=== PATIENT | female | born 1985 | race Caucasian/White ===

== ENCOUNTER 2020-05-21 10:12 | Emergency (ER) | payer OTHER | END 2020-05-21 10:42 | disposition home or self-care (01) | LOC: JVIRT 10:12 | DX: R53.83 Other fatigue (principal); R51.9 Headache, unspecified; Z11.59 Encounter for screening for other viral diseases | CPT/HCPCS: C9803; Q3014-GT; U0003 ==

== ENCOUNTER 2020-06-12 13:38 | Emergency (ER) | payer OTHER | END 2020-06-12 14:46 | disposition home or self-care (01) | LOC: JVIRT 13:38 | DX: Z03.818 Encounter for observation for suspected exposure to other biological agents ruled out (principal); J31.0 Chronic rhinitis | CPT/HCPCS: C9803; G2012-GT; U0003 ==

== ENCOUNTER 2020-07-04 11:23 | Emergency (ER) | payer OTHER | END 2020-07-04 14:03 | disposition home or self-care (01) | LOC: JVIRT 11:23 | DX: Z03.818 Encounter for observation for suspected exposure to other biological agents ruled out (principal) | CPT/HCPCS: C9803; G2012-GT; Q3014-GT; U0003 ==

== ENCOUNTER 2020-07-11 10:36 | Emergency (ER) | payer OTHER | END 2020-07-11 11:57 | disposition home or self-care (01) | LOC: JVIRT 10:36 | DX: J31.0 Chronic rhinitis (principal); Z20.822 Contact with and (suspected) exposure to COVID-19 | CPT/HCPCS: C9803; Q3014-GT; U0003 ==

== ENCOUNTER 2020-07-22 14:02 | Emergency (ER) | payer OTHER | END 2020-07-22 14:26 | disposition home or self-care (01) | LOC: JVIRT 14:02 | DX: Z11.52 Encounter for screening for COVID-19 (principal); R10.9 Unspecified abdominal pain; R51.9 Headache, unspecified | CPT/HCPCS: C9803; G2012-GT; U0003 ==

== ENCOUNTER 2020-07-29 10:42 | Emergency (ER) | payer OTHER | END 2020-07-29 11:19 | disposition home or self-care (01) | LOC: JVIRT 10:42 | DX: U07.1 COVID-19 (principal) | CPT/HCPCS: C9803; G2012-GT; U0003 ==

== ENCOUNTER 2020-08-15 12:10 | Emergency (ER) | payer OTHER | END 2020-08-15 12:56 | disposition home or self-care (01) | LOC: JVIRT 12:10 | DX: R51.9 Headache, unspecified (principal) | CPT/HCPCS: G2012-GT ==

== ENCOUNTER 2023-03-17 13:11 | Day surgery (SDC) | payer OTHER ==
[2023-03-17] MEDS ORDERED: ONDANSETRON 4 MG/2 ML VIAL IVPUSH ONE (13:39)
[2023-03-17] MEDS ORDERED: SODIUM CHLORIDE 0.9% 500 ML INFUS.BAG IV ONE (13:39)
[2023-03-17] MEDS ORDERED: MAG HYDROX/AL HYDROX/SIMETH 30 ML UNIT-DOSE CUP PO ONE (13:41)
[2023-03-17] MEDS ORDERED: FAMOTIDINE 20 MG/50 ML IVPB 20 MG/50 ML MG IVPB ONE ×2 (13:50→13:54)
[2023-03-17] MEDS ORDERED: ONDANSETRON 4 MG/2 ML VIAL ONE (13:53)
[2023-03-17] MEDS ORDERED: MAG HYDROX/AL HYDROX/SIMETH 30 ML UNIT-DOSE CUP ONE (13:54)
[2023-03-17] MEDS ORDERED: ACETAMINOPHEN 1000 MG/100 ML BAG IVPB ONE ×2 (13:58→21:13)
[2023-03-17 14:20] LABS: HEMATOCRIT 41.4 % (32.4-45.2); HEMOGLOBIN 13.5 G/dL (10.7-15.3); MCH 28.1 pg (25.7-33.7); MCHC 32.7 g/dl (32.0-36.0); MEAN CELL VOLUME 86.1 fl (80-96); MEAN PLT VOLUME 7.6 fl (7.5-11.1); PLATELET COUNT 215.5 10^3/uL (134-434); RBC 4.81 10^6/uL (3.60-5.2); RDW 14.7 % (11.6-15.6); WHITE BLOOD COUNT 16.2 10^3/uL (4.0-10.8)
[2023-03-17] MEDS ORDERED: ACETAMINOPHEN INJECTION 100 ML IVPB ONE (14:24)
[2023-03-17 14:29] LABS: HCG,QUALITATIVE URINE Negative
[2023-03-17 14:34] LABS: ALBUMIN 4.4 g/dl (3.4-5.0); BLOOD UREA NITROGEN 9.6 mg/dl (7-18); CALCIUM 9.5 mg/dl (8.5-10.1); CREATININE 0.8 mg/dl (0.6-1.3); MAGNESIUM 1.5 mg/dL (1.8-2.4); POTASSIUM 3.8 mmol/L (3.5-5.1); SGOT/AST 25.7 U/L (15-37); SGPT/ALT 34.2 U/L (7-52); TOT PROT 7.1 g/dl (6.4-8.2)
[2023-03-17 18:43] LABS: BILIRUBIN,TOTAL 0.9 mg/dl (0.2-1)
[2023-03-17] MEDS ORDERED: PIPERACILLIN/TAZOBACTAM 4.5 GM VIAL IVPB ONE (20:57)
[2023-03-17] MEDS ORDERED: SODIUM CHLORIDE 1,000 ML IV ONE (20:58)
[2023-03-17] MEDS ORDERED: PIPERACILLIN/TAZOB 4.5 GM 4.5 GM in DEXTROSE 5%-WATER 100 ML IVPB ONE (20:59)
[2023-03-17] MEDS ORDERED: MAGNESIUM SULF 50% (8.12 MEQ/2 ML-1 GM VIAL) IVPB ONE (21:34)
[2023-03-17] MEDS ORDERED: ONDANSETRON 4 MG/2 ML VIAL IVPUSH PRN (21:35)
[2023-03-17] MEDS ORDERED: MAGNESIUM 1GM/D5W - 1 GM/100 ML IVPB IVPB ONE (21:39)
[2023-03-17] MEDS ORDERED: ALPRAZolam 0.25 MG TABLET PO PRN (21:49)
[2023-03-17 22:07] LABS: INR 1.1 (0.83-1.09); PROTHROMBIN TIME (PATIENT) 12.8 SEC (9.7-13.0)
[2023-03-17 23:17] VITALS: BMI 33.9
[2023-03-17] MEDS: DEXTROSE 5%-NORMAL SALINE 1,000 ML IV SCH (23:58)
[2023-03-18] MEDS ORDERED: MELATONIN 5 MG TABLETS PO PRN ×2 (00:50→20:28)
[2023-03-18] MEDS: PIPERACILLIN/TAZOB 3.375 GM 3.375 GM in DEXTROSE 5%-WATER - 50 ML IVPB SCH ×4 (02:36→20:19)
[2023-03-18] MEDS: ACETAMINOPHEN 1000 MG/100 ML BAG IVPB PRN ×2 (06:21→13:50)
[2023-03-18 09:18] LABS: BLOOD UREA NITROGEN 6.4 mg/dl (7-18); CALCIUM 8.1 mg/dl (8.5-10.1); CREATININE 0.8 mg/dl (0.6-1.3); MAGNESIUM 2.1 mg/dL (1.8-2.4); POTASSIUM 3.9 mmol/L (3.5-5.1)
[2023-03-18] MEDS: DEXTROSE 5%-NORMAL SALINE 1,000 ML IV SCH (10:34)
[2023-03-18 12:09] LABS: BASO % 0.5 % (0-2.0); EOS % 2.5 % (0-4.5); HEMOGLOBIN 11.9 GM/dL (10.7-15.3); LYMPH % 15.5 % (8-40); MCH 28.6 pg (25.7-33.7); MCHC 33.9 g/dl (32.0-36.0); MEAN CELL VOLUME 84.5 fl (80-96); MEAN PLT VOLUME 7.7 fl (7.5-11.1); MONO % 10.2 % (3.8-10.2); NEUT % 71.3 % (42.8-82.8); PLATELET COUNT 212 10^3/uL (134-434); RBC 4.14 M/mm3 (3.60-5.2); RDW 14.3 % (11.6-15.6); WHITE BLOOD COUNT 8.4 K/mm3 (4.0-10.0)
[2023-03-18 13:34] LABS: OPIATES, URI NEGATIVE (NEGATIVE); URINE BARBITURATES NEGATIVE (NEGATIVE)
[2023-03-18 13:35] LABS: COCAINE, UR POSITIVE (NEGATIVE); METHADONE, UR NEGATIVE (NEGATIVE); PHENCYCLIDINE,URINE NEGATIVE (NEGATIVE); URINE AMPHETAMINES NEGATIVE (NEGATIVE); URINE BENZODIAZEPINES NEGATIVE (NEGATIVE)
[2023-03-18] MEDS ORDERED: PROPOFOL 40 ML ONE (15:11)
[2023-03-18] MEDS ORDERED: SUCCINYLCHOLINE CHLORIDE 200 MG/10 ML SYRINGE ONE (15:12)
[2023-03-18] MEDS ORDERED: ROCURONIUM BROMIDE 50 MG/5 ML SYRINGE ONE (15:12)
[2023-03-18] MEDS ORDERED: BUPIVACAINE HCL/PF 0.5% (5MG/ML) 10 ML VIAL ONE (15:13)
[2023-03-18] MEDS ORDERED: MIDAZOLAM HCL 2 MG/2 ML SINGLE DOSE VIAL ONE ×2 (15:55→18:11)
[2023-03-18] MEDS ORDERED: oxyCODONE HCL 5 MG TABLET PO PRN ×2 (17:10→20:28)
[2023-03-18] MEDS ORDERED: BUPIVACAINE HCL/PF 2.5 MG/ML - 30 ML VIAL IJ ONE (17:10)
[2023-03-18] MEDS ORDERED: ONDANSETRON 4 MG/2 ML VIAL IVPUSH PRN ×3 (17:10→20:28)
[2023-03-18] MEDS ORDERED: THROMBIN (BOVINE) 5,000 UNIT VIAL TP ONE (17:11)
[2023-03-18] MEDS ORDERED: LACTATED RINGERS SOLUTION 1,000 ML IV SCH (17:15)
[2023-03-18] MEDS ORDERED: HEPARIN NA (PORCINE) 5,000 UNITS/ML 1ML VIAL ONE (17:52)
[2023-03-18] MEDS ORDERED: SUGAMMADEX SODIUM 200 MG/2 ML VIAL ONE (18:10)
[2023-03-18] MEDS ORDERED: ALPRAZolam 0.25 MG TABLET PO PRN (20:28)
[2023-03-18] MEDS ORDERED: DEXTROSE 5%-NORMAL SALINE 1,000 ML IV SCH (20:28)
[2023-03-18] MEDS ORDERED: ACETAMINOPHEN 1000 MG/100 ML BAG IVPB PRN (20:28)
[2023-03-18] MEDS ORDERED: PIPERACILLIN/TAZOB 3.375 GM 3.375 GM in DEXTROSE 5%-WATER - 50 ML IVPB SCH (21:00)
[2023-03-18] MEDS: KETOROLAC TROMETHAMINE 15 MG/ML VIAL IVPUSH SCH (22:01)
[2023-03-19] MEDS ORDERED: ACETAMINOPHEN 325 MG TABLET (FP) PO PRN ×2 (01:00)
[2023-03-19] MEDS: KETOROLAC TROMETHAMINE 15 MG/ML VIAL IVPUSH SCH ×2 (03:25→09:53)
[2023-03-19] MEDS: PIPERACILLIN/TAZOB 3.375 GM 3.375 GM in DEXTROSE 5%-WATER - 50 ML IVPB SCH ×3 (03:32→09:48)
[2023-03-19 08:42] LABS: ALBUMIN 3.8 g/dl (3.4-5.0); BILIRUBIN,TOTAL 0.3 mg/dl (0.2-1); BLOOD UREA NITROGEN 4.5 mg/dl (7-18); CALCIUM 8.4 mg/dl (8.5-10.1); CREATININE 0.7 mg/dl (0.6-1.3); POTASSIUM 4.5 mmol/L (3.5-5.1); SGOT/AST 21.4 U/L (15-37); SGPT/ALT 24.3 U/L (7-52); TOT PROT 6.1 g/dl (6.4-8.2)
[2023-03-19 09:32] VITALS: BP 110/60; PULSE 76; RESP 18; TEMP 98
[2023-03-19 09:57] LABS: BASO % 0.1 % (0-2.0); HEMATOCRIT 34.4 % (32.4-45.2); HEMOGLOBIN 11.6 GM/dL (10.7-15.3); LYMPH % 11.1 % (8-40); MCH 28.7 pg (25.7-33.7); MCHC 33.9 g/dl (32.0-36.0); MEAN CELL VOLUME 84.7 fl (80-96); MEAN PLT VOLUME 7.6 fl (7.5-11.1); MONO % 5.6 % (3.8-10.2); NEUT % 83.2 % (42.8-82.8); PLATELET COUNT 222 10^3/uL (134-434); RBC 4.06 M/mm3 (3.60-5.2); WHITE BLOOD COUNT 8.5 K/mm3 (4.0-10.0)
[2023-03-19] MEDS ORDERED: PIPERACILLIN/TAZOB 3.375 GM 3.375 GM in DEXTROSE 5%-WATER - 50 ML IVPB SCH (21:00)
== END 2023-03-19 10:45 | disposition home or self-care (01) ==
LOC: FER 13:11 → UNDOADMOB 20:56 → INTOOBSV 20:56 → FM/S 20:56 → FASUSAT 03-19 08:19
PROVIDERS: ATTEND Internal Medicine
PROC: 0DTJ4ZZ Resection of Appendix, Percutaneous Endoscopic Approach (ICD-10-PCS; principal; 2023-03-19)
DX: K35.80 Unspecified acute appendicitis (principal)
CPT/HCPCS: 0241U-QW; 36415; 74177-TC; 80048; 80053; 80307; 81003; 83690; 83735; 84100; 84703; 85025; 85027; 85610; 86850; 86900; 86901; 88304-TC; 94760; 99285-25; J1644; Q9967